=== PATIENT | female | born 1965 | race Caucasian/White ===

== ENCOUNTER → 2018-08-28 08:51 | Outpatient (CLI) | payer BC, SELFPAY ==
--- NOTE | 2018-08-28 08:56 | MM_ITS ---
MM Dig screening mamm BI w/CAD CAD Screening COMPARISON: Digital mammograms with CAD 07/12/2015 INDICATION: There is no personal or family history of breast cancer TECHNIQUE: Standard CC and MLO images were obtained. R2 CAD reviewed. FINDINGS: The breasts are composed primarily of fat with minimal scattered fibroglandular densities in each breast. Again noted is an area of slightly asymmetric glandular tissue upper outer quadrant right breast which is stable. There is a mole marker left breast. There is no suspicious lesion and there are no suspicious microcalcifications. IMPRESSION: Fibrofatty parenchyma with no suspicious lesion seen BI-RADS Category: 1 Negative RECOMMENDED FOLLOW-UP: 1YR - 1 YEAR FOLLOW-UP (A letter has been sent to the patient regarding results of the study.)
== END ==
PROVIDERS: PCP Nurse Practitioner Family; Visit Provider Nurse Practitioner Family
DX: Z12.31 Encounter for screening mammogram for malignant neoplasm of breast (principal)
CPT/HCPCS: 77067

== ENCOUNTER → 2019-11-22 09:05 | Outpatient (CLI) | payer BC, SELFPAY ==
--- NOTE | 2019-11-22 09:10 | MM_ITS ---
PROCEDURE: MM DIG SCREENING MAMM BI W/CAD Digital Breast Tomosynthesis Included CLINICAL INDICATION: SCREENING There is no personal or family history of breast cancer. COMPARISON: [facility] DIG MAMM-SCREEN VAIBHAV from 07/12/2015 [facility] MM Dig screening mamm BI w/CAD from 08/28/2018 TECHNIQUE: Standard CC and MLO images and 3D Tomosynthesis was obtained. R2 CAD reviewed. FINDINGS: Mild to moderate scattered fibroglandular densities are seen throughout both breasts. The findings of bilateral and symmetrical. There is no suspicious lesion in either breast and no suspicious microcalcifications. There are fatty replaced nodes in both axilla. IMPRESSION: Fibrofatty parenchyma with no suspicious lesions seen BI-RAD Category: 1 Negative FOLLOW-UP: 1YR 1 Year Follow-up (A letter has been sent to the patient regarding results of the study.) Dictated by: Dr. Hakeem Barnes MD 11/24/2019 15:[address] Hakeem Barnes MD in [place] 11/24/2019 15:07
--- NOTE | 2019-11-22 09:10 | XR_ITS ---
PROCEDURE: XR DEXA AXIAL SKELETON CLINICAL HISTORY: POST MENOPAUSAL COMPARISON: No exams were available for comparison FINDINGS: The right hip BMD is 0.678 with a t-score of -1.5. The left hip BMD is 0.764 with a t-score of -0.8. The lumbar spine BMD is 0.963 with a t-score of -0.8. IMPRESSION: This patient is considered osteopenic according to the World Health Organization criteria. Bone density is between 10 and 25 percent below young normal . Fracture risk is moderate. Treatment is advised. Based on these results of follow-up exam is recommended in 2 years Dictated by: Yuriy De Leon MD 11/22/2019 20:32 Electronically signed by Yuriy De Leon MD in [place] 11/23/2019 11:04
== END ==
PROVIDERS: PCP Internal Medicine Addiction Medicine; Visit Provider Internal Medicine Addiction Medicine
DX: Z12.31 Encounter for screening mammogram for malignant neoplasm of breast (principal); Z78.0 Asymptomatic menopausal state
CPT/HCPCS: 77063; 77067; 77080

== ENCOUNTER → 2020-12-07 09:39 | Outpatient (CLI) | payer BC, SELFPAY ==
--- NOTE | 2020-12-07 09:43 | MM_ITS ---
PROCEDURE: MM DIG SCREENING MAMM BI W/CAD Digital Breast Tomosynthesis Included CLINICAL INDICATION: SCREENING Screening for breast cancer COMPARISON: MG [facility]MSB DIG MAMM-SCREEN VAIBHAV from 07/12/2015 MG [facility] MM Dig screening mamm BI w/CAD from 08/28/2018 MG MM DIG SCREENING MAMM BI W/CAD from 11/22/2019 TECHNIQUE: Standard CC and MLO images and 3D Tomosynthesis was obtained. R2 CAD reviewed. FINDINGS: Average fibroglandular tissue Right breast: Asymmetric density outer aspect right breast. Left breast: Nodular density lower inner left breast 6 mm. No malignant-appearing microcalcification skin or skin thickening. Bilateral axillary lymph nodes are noted. IMPRESSION: Asymmetric density right breast and nodular density left breast as described above. Recommend spot compression views, straight mL view, and rolled CC views on the right along with bilateral breast ultrasound BI-RAD Category: 0 Need Additional Imaging Evaluation FOLLOW-UP: IMM Immediate Follow-up Recommended (A letter has been sent to the patient regarding results of the study.) Dictated by: Yuriy De Leon MD 12/11/2020 10:47 Yuriy De Leon MD in [place] 12/11/2020 10:47
== END ==
PROVIDERS: Visit Provider Internal Medicine Addiction Medicine
DX: Z12.31 Encounter for screening mammogram for malignant neoplasm of breast (principal)
CPT/HCPCS: 77063; 77067

== ENCOUNTER → 2020-12-29 14:18 | Outpatient (CLI) | payer BC, SELFPAY ==
--- NOTE | 2020-12-29 14:22 | MM_ITS ---
PROCEDURE: MM DIG MAMM BI DX W/CAD Digital Breast Tomosynthesis Included CLINICAL INDICATION: ABN MAMM Follow-up abnormal mammogram COMPARISON: MG [facility]MSB DIG MAMM-SCREEN VAIBHAV from 07/12/2015 MG [facility] MM Dig screening mamm BI w/CAD from 08/28/2018 MG MM DIG SCREENING MAMM BI W/CAD from 11/22/2019 MG MM DIG SCREENING MAMM BI W/CAD from 12/07/2020 US US BREAST LT COMPLETE from 12/29/2020 US US BREAST RT COMPLETE from 12/29/2020 TECHNIQUE: Standard CC and MLO images and 3D Tomosynthesis was obtained. R2 CAD reviewed. FINDINGS: Average fibroglandular tissue. Right breast: The area of asymmetric density in the upper outer right breast appears to compress out as fibroglandular tissue and not reproduced on the rolled views. Right breast ultrasound: No cystic or solid lesions demonstrated. Left breast: Persistent nodular opacity measuring approximately 6 mm in the left breast near 7 o'clock. Margins are somewhat obscured on the spot compression views therefore ultrasound was obtained Left breast ultrasound: A 7 x 3 mm hypoechoic nodules present at 6 o'clock near the nipple with well-circumscribed margins. There are low level internal echoes. Complicated cyst is considered. This may correspond to the mammographic abnormality. No suspicious nodules are apparent. There is a 5 x 2 mm complicated cyst at 5 o'clock near the nipple with some minimal ductal dilatation at this area there is a mildly prominent left axillary lymph node at 3 by 2 cm. IMPRESSION: Probably benign findings bilaterally. Asymmetric density upper outer right breast may be related to fibroglandular tissue. Nodule in the lower left breast felt to represent a complicated cyst. There is a mildly prominent left axillary lymph node. This has been present on previous mammograms. Please correlate with physical exam. BI-RAD Category: 3 Probably Benign Finding Short Term Follow-Up FOLLOW-UP: 6M 6 Month Follow-up Recommend correlation with physical exam regarding left axillary adenopathy. (A letter has been sent to the patient regarding results of the study.) Dictated by: Yuriy De Leon MD 01/04/2021 09:24 Yuriy De Leon MD in [place] 01/04/2021 09:24
== END ==
PROVIDERS: PCP Family Medicine; Visit Provider Internal Medicine Addiction Medicine
DX: R92.8 Other abnormal and inconclusive findings on diagnostic imaging of breast (principal)
CPT/HCPCS: 76641; 77062; 77066; G0279

== ENCOUNTER → 2021-12-25 13:48 | Outpatient (CLI) | payer BC, SELFPAY ==
--- NOTE | 2021-12-25 13:58 | MM_ITS ---
PROCEDURE INFORMATION: Exam: MG Bilateral Diagnostic Breast Tomosynthesis Exam date and time: 12/25/2021 1:59 PM Age: 56 years old Clinical indication: Six-month follow-up recommended for asymmetry in the upper outer right breast and nodule in the lower left breast as well as mildly prominent left axillary node, since 01/04/2021. TECHNIQUE: Imaging protocol: Bilateral Diagnostic tomosynthesis and 2D mammography including computer-aided detection (CAD) when performed. Unilateral or bilateral exam. COMPARISON: 1. MG MM DIG MAMM BI DX W/CAD 12/29/2020 2:21 PM 2. MG MM DIG SCREENING MAMM BI W/CAD 12/07/2020 9:57 AM 3. MG MM DIG SCREENING MAMM BI W/CAD 11/22/2019 9:49 AM 4. MG [facility] MM Dig screening mamm BI w/CAD 08/28/2018 9:06 AM FINDINGS: MAMMOGRAPHY: Breast composition: There are scattered areas of fibroglandular density. Mass: Stable 0.7 cm nodule on the left at 6 o'clock, middle 3rd, since 12/07/2020. Architectural distortion: None. Calcifications: No suspicious calcifications. Asymmetric density: No developing asymmetry. Skin thickening: None. Axillary adenopathy: None. IMPRESSION: See comment No mammographic evidence of malignancy. If interval left sonography has not been for performed, consider recall for targeted left sonography at 5 and 6 o'clock, and left axilla, as suggested in the report from 01/04/2021. Annual screening mammography recommended unless otherwise clinically indicated. ASSESSMENT: BI-RADS Category 2: Benign
== END ==
PROVIDERS: PCP Family Medicine; Visit Provider Family Medicine
DX: R92.8 Other abnormal and inconclusive findings on diagnostic imaging of breast (principal)
CPT/HCPCS: 77062; 77066; G0279